=== PATIENT | male | born 1960 | race Caucasian/White ===

== ENCOUNTER 2017-06-08 03:41 | Day surgery (SDC) | payer OTHER ==
[~2017-06-08] VITALS: Ht 180.3 cm; Wt 105.2 kg
[2017-06-08] VITALS (8 sets, daily range): BP systolic 113–145; BP diastolic 74–92
[~2017-06-08 03:41] MED LIST: ASPI81TA94 PO; ATOR40TA24 PO; FENO145T PO; GLIM4TAB50 PO; HYDR-2966 PO; LEVO-3 PO; LISI20TA29 PO; METF-420 PO; PIOG30TA3 PO
[2017-06-08] MEDS ORDERED: PROPOFOL EMUL(*) 10MG/ML 20 ML 20 ML ONE (11:16)
[2017-06-08] MEDS ORDERED: LIDOCAINE/SOD BICARB 8.4% SYR ID ONE (12:00)
[2017-06-08] MEDS ORDERED: NORMOSOL R SOLN(*) 1000 ML BAG 1,000 ML IV PRN (12:00)
[2017-06-08] MEDS ORDERED: MIDAZOLAM 2 MG/2 ML VIAL IVP PRN (12:00)
== END 2017-06-08 14:30 | disposition home or self-care (01) ==
LOC: OR 03:41
PROVIDERS: ATTEND Family Medicine
DX: Z12.11 Encounter for screening for malignant neoplasm of colon (principal); E11.9 Type 2 diabetes mellitus without complications
CPT/HCPCS: 00812; 36416; 45378; 82948; J2704

== ENCOUNTER → 2018-09-21 | Outpatient (CLI) | payer OTHER ==
[~2018-09-21] MED LIST changes: +ALLO-119 PO; +ATOR-1 PO; +EMPA10TA PO; -FENO145T PO; +FENO145T36 PO; +LISI-374 PO; -METF-420 PO; +METF-452 PO; +METO100T20 PO; -PIOG30TA3 PO; +PIOG30TA71 PO; +ROSU40TA18 PO
--- NOTE | 2018-09-21 12:41 | RADIOLOGY IMAGING REPORT ---
FACILITY: [facility] PATIENT NAME: Wade Gregory : 1960 MR: [id number] V: [id number] EXAM DATE: ORDERING PHYSICIAN: KODI JOHNSON TECHNOLOGIST: Location: [facility] Patient: Wade Gregory : 1960 Visit/Account:[id number] Date of Sevice: 09/21/2018 EXAMINATION: Single Isotope SPECT Imaging with Exercise and Gated SPECT Imaging DATE OF EXAMINATION: 09/21/2018 DATE OF INTERPRETATION: 09/21/2018 REQUESTING PHYSICIAN: INDICATION: The patient is a 58-year-old male evaluated for shortness of breath with elevated calciu m score. PROCEDURE: After informed consent the patient received an intravenous injection of 11.3 mCi of Tc-9 9m sestamibi followed at the appropriate time interval by rest imaging. The patient then exercised a ccording to the standard Leo protocol for 4:32 minutes achieving 6.4 METS. Resting heart rate was 83 bpm with a peak heart rate of 153 bpm which is 94 % of maximal predicted heart rate for age. Blo od pressure at rest was 130 / 83; blood pressure during exercise was 146 / 71. There was no chest pa in during exercise. Exercise was discontinued because of leg fatigue. Baseline EKG demonstrates sin us rhythm with nonspecific ST-T wave changes. There were no EKG changes of ischemia at peak exercise . Approximately one minute and 30 seconds prior to the termination of exercise, the patient received an intravenous injection of 30.3 mCi of Tc-99m sestamibi followed by stress imaging. RAW DATA: Examination of the summed raw data revealed a adequate quality study. MYOCARDIAL PERFUSION: The tomographic images demonstrate normal myocardial perfusion tracer uptake i n all segments. No evidence of ischemia or prior infarction. No transient ischemic dilation. GATED IMAGES: The gated images demonstrate normal LV ejection fraction greater than 70%. Normal gerry onal wall motion. IMPRESSION: 1. Equivocal exercise treadmill EKG due to baseline abnormal ST-T wave segments. 2. Normal myocardial perfusion scan. No evidence of ischemia or infarction. 3. Normal LV systolic function; LVEF > 70%. 4. The right ventricle is noted to be dilated on perfusion imaging. 5. Based on the results of this exam, the patient appears to be at low risk for future cardiovascular events. Report Dictated By: Petar Hardin at 09/21/2018 12:31 PM Report E-Signed By: Petar Hardin at 09/21/2018 12:36 PM WSN:[id number]
--- NOTE | 2018-09-24 11:46 | RT STRESS TEST REPORT ---
FACILITY: [facility] PATIENT NAME: RICH STEVENSON : [id number] MR: [id number] V: [id number] EXAM DATE: ORDERING PHYSICIAN: KODI JOHNSON TECHNOLOGIST: Manuel Acquisition Time: 2018-09-21 09:31:32 Total Exercise Time: 00:04:32 Test Indications: Screening for CAD Medications: SEE NUCLEAR MEDICINE SHEET Protocol: VAL 2 Max HR: 153 BPM 94% of Pred: 162 BPM Max BP: 146/071 mmHG Max Work Load: 6.4 METS SEE IMAGING / NUC MED REPORT Confirmed by INGA EVANS ([id number]), metropolitan editor DARION PRINCE ([id number]) on 09/24/2018 11:45:16 AM Referred By: Overread By: INGA EAVNS
== END ==
LOC: NUC 04:14
PROVIDERS: ATTEND Internal Medicine
DX: R06.02 Shortness of breath (principal); I25.10 Atherosclerotic heart disease of native coronary artery without angina pectoris
CPT/HCPCS: 78452; 93017; A9500